=== PATIENT | male | born 1965 | race African-American/Black ===

== ENCOUNTER 2018-12-03 12:25 | Emergency (ER) | payer OTHER, SELFPAY ==
[2018-12-03 12:48] LABS: Bilirubin Negative (Negative); Blood, Urine Large (Negative); Clarity Cloudy (Clear); Glucose, Urine (Dipstick) Negative (Negative); Leukocyte Large (Negative); Nitrite Negative (Negative); Protein, Urine (Dipstick) 30 mg/dL (Neg-Trace); Urobilinogen 0.2 mg/dL (0.2-1.0); pH, Urine 5.5 (5.0-9.0)
[2018-12-03 12:56] LABS: Bacteria/HPF 2+ HPF (None Seen); RBC/HPF GREATER THAN 50-TNTC HPF (0-3); Squamous Epithelial 0-3 HPF (0-3)
[2018-12-03] MEDS ORDERED: Azithromycin 250 MG TAB ONE (13:29)
[2018-12-03] MEDS ORDERED: cefTRIAXone\\ROCEPHIN 500 MG VIAL ONE (13:29)
[2018-12-03] MEDS ORDERED: Lidocaine 1% PF 5 ML VIAL ONE (13:32)
--- NOTE | 2018-12-03 19:50 | CT ---
CT OF THE ABDOMEN AND PELVIS WITHOUT CONTRAST: 12/03/18 No prior scans were available for comparison. The lung bases are clear. The liver, spleen, pancreas, gallbladder, and abdominal aorta all appeared normal. There may be a small fatty mass in the right adrenal gland in which case it is almost certain ly an adenoma. it is only about 1.2 cm in size. I do not feel that further followup is needed. Regarding the kidneys, no renal stones or ureteral calculi were seen. There is a small 6 mm hyperdens e focus in the middle third of the right kidney. Statistically, these are benign and may be entities such as a small hemorrhagic cyst. Might be worth an elective ultrasound to take a second look. The amaya wel shows no distention, wall thickening, inflammatory change. No free air or free fluid was present. CT of the pelvis shows a very large prostate gland measuring 6 cm in diameter. No bladder calculi are seen. There are no inflammatory changes in the pelvis. IMPRESSION: 1. No evidence of urinary tract calculi or obstruction. 2. 6 mm hyperdense focus in the right kidney, more likely benign than not. An elective followup ultrasound might be considered. 3. Prostatic enlargement. POS: HOME
[2018-12-06 17:06] LABS: Chlam.trachomatis by PCR,Urine Not Detected (NotDetected)
== END 2018-12-03 14:07 | disposition home or self-care (01) ==
LOC: BURERS 12:25
DX: N40.0 Benign prostatic hyperplasia without lower urinary tract symptoms (principal); A64 Unspecified sexually transmitted disease; F17.210 Nicotine dependence, cigarettes, uncomplicated
CPT/HCPCS: 74176; 81003; 81015; 87491; 87591; 96372; J0696; J2001